=== PATIENT | female | born 1985 | race Caucasian/White ===

== ENCOUNTER 2017-04-04 11:44 | Emergency (ER) | payer OTHER ==
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
--- NOTE | 2017-04-04 13:14 | ED ORDER SUMMARY ---
..... Patient: VAL PADRON OrderSheet [facility] VisitID: [id number] [address] [place] [address] 31y, F Registration Date/Time: 04/04/2017 ORDER SHEET Weight: 43.9 kg (stated) Allergies: Penicillin, Valium, Sulfa Antibiotics, Amoxicillin, Zofran, Vicodin GENERAL ORDERS: CT Cervical Spine wo Cont Urgent (12:15 04/04/2017 HBivens A.R.N.P.) ([facility] 12:44 Vahid) (13:01 Corazon) MEDICATION ORDERS: Toradol IM 60 mg (NOW) (12:37 04/04/2017 HBivens A.R.N.P.) (12:50 Miguelina Lazo.N.) IV FLUIDS: ORDER SHEET NOTES: [Electronically signed by Jessica Gutierrez R.N. (13:25 04/04/2017)] [Electronically signed by Natasah Alston.R.N.P. (15:14 04/04/2017)] [Electronically locked/signed by Jessica Gutierrez R.N. (13:25 04/04/2017)]
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
--- NOTE | 2017-04-04 13:14 | ED ORDER SUMMARY ---
..... Patient: VAL PADRON OrderSheet [facility] VisitID: [id number] [address] [place] [address] 31y, F Registration Date/Time: 04/04/2017 ORDER SHEET Weight: 43.9 kg (stated) Allergies: Penicillin, Valium, Sulfa Antibiotics, Amoxicillin, Zofran, Vicodin GENERAL ORDERS: CT Cervical Spine wo Cont Urgent (12:15 04/04/2017 HBivens A.R.N.P.) ([facility] 12:44 Vahid) (13:01 Corazon) MEDICATION ORDERS: Toradol IM 60 mg (NOW) (12:37 04/04/2017 HBivens A.R.N.P.) (12:50 Miguelina Lazo.N.) IV FLUIDS: ORDER SHEET NOTES: [Electronically signed by Jessica Gutierrez R.N. (13:25 04/04/2017)] [Electronically signed by Natasha Alston.R.N.P. (15:14 04/04/2017)] [Electronically locked/signed by Jessica Gutierrez R.N. (13:25 04/04/2017)]
--- NOTE | 2017-04-04 15:15 | ED MAR SUMMARY ---
..... Medication Administration Record [facility] [address] [place] [address] Patient: VAL PADRON Visit ID: [id number] 31y, F Weight: 43.9 kg Height/Length: 64 in BMI: 16.6 ALLERGIES: Zofran, Amoxicillin, Sulfa Antibiotics, Valium, Penicillin, Vicodin Given 12:50 04/04/2017 Robe Joy R.N. Medication Administered: TORADOL [IM] (KETOROLAC TROMETHAMINE), Dose: 60 mg IM. Medication Ordered: Toradol IM 60 mg (NOW).
--- NOTE | 2017-04-04 15:15 | ED DISCHARGE INSTRUCTIONS ---
Patient: VAL PADRON General Instructions [facility] VisitID: [id number] [address] [place] [address] 31y, F Registration Date/Time: 04/04/2017 Acute cervical strain. INSTRUCTIONS Warnings: GENERAL WARNINGS: Return or contact your physician immediately if your condition worsens or changes unexpectedly, if not improving as expected, or if other problems arise. SPECIFICALLY, return if you develop incontinence of urine (loss of bladder control). Prescription Medications: Naproxen 500 mg tablets: take 1 orally every 12 hours as needed for pain. Dispense twenty (20). No refills. Flexeril 10 mg: Take 1 orally every 8 hours as needed for muscle spasm. Dispense twenty (20). No refills. Substitution is permissible. Follow-up: Follow up with your doctor in about one week even if well. Call for an appointment. Summary of care provided to patient. Understanding of the discharge instructions verbalized by patient. ADDITIONAL INFORMATION Neck Sprain Or Strain A sudden force that causes turning or bending of the neck (such as in a car accident) can stretch or tear muscles (strain) and ligaments (sprain) and cause neck pain. Sometimes neck pain occurs after a simple awkward movement. In either case, muscle spasm is commonly present and contributes to the pain. Unless you had a forceful physical injury (for example, a car accident or fall), X-rays are usually not ordered for the initial evaluation of neck pain. If pain continues and dose not respond to medical treatment, X-rays and other tests may be performed at a later time. Home care The following guidelines will help you care for your injury at home: You may feel more soreness and spasm the first few days after the injury. Reduce your activity level until symptoms begin to improve. When lying down, use a comfortable pillow that supports the head and keeps the spine in a neutral position. The position of the head should not be tilted forward or backward. Use ice packs (ice in a plastic bag, wrapped in a towel) to treat acute pain. Apply for 20 minutes every 24 hours during the first two days. Then, begin local heat (hot shower, hot bath or heating pad) andmassageto reduce muscle spasm. Some patients feel best alternating hot and cold treatments, or just staying with one method only. Do what feels the best to you and gives the most relief. You may use acetaminophen or ibuprofen to control pain, unless another pain medicine was prescribed.If you have chronic liver or kidney disease or ever had a stomach ulcer or GI bleeding, talk with your doctor before using these medicines. Follow-up care Follow up with your physician or this facility if your symptoms do not show signs of improvement. Physical therapy may be needed. If you had X-rays today, they didnt show any broken bones, breaks, or fractures. Sometimes fractures dont show up on the first X-ray. Bruises and sprains can sometimes hurt as much as a fracture. These injuries can take time to heal completely. If your symptoms dont improve or they get worse, talk with your doctor. You may need a repeat X-ray. When to seek medical care Get prompt medical attention if any of the following occur: Pain becomes worse or spreads into your arms Weakness or numbness in one or both arms Neck Pain [No Trauma] There are several possible causes of neck pain without injury: You can get a minor ligament sprain or muscle strain from a sudden minor neck movement. Sleeping with your neck in an awkward position can also cause this. Some persons respond to emotional stress by tensing the muscles of their neck, shoulders and upper back. Chronic spasm in these muscles can cause neck pain and sometimes headaches. Gradualwear and tearof the joints in the spine can cause degenerative arthritis.This can be a source of occasional or chronic neck pain. With aging or repeated small injuries to the neck, the spinal disks (the cushions between each spinal bone) may bulge and put pressure on a nearby spinal nerve. This causes tingling, pain or numbness spreading from the neck to the shoulder, arm or hand on one side. Acute neck pain usually gets better in one to two weeks. Neck pain related to disk disease, arthritis in the spinal joints or spinal stenosis (narrowing of the spinal canal) can become chronic and last for months or years. Unless you had a forceful physical injury (for example, a car accident or fall), X-rays are usually not ordered for the initial evaluation of neck pain. If pain continues and does not respond to medical treatment, x-rays and other tests may be performed at a later time. Home Care: Rest and relax the muscles. Use a comfortable pillow that supports the head and keeps the spine in a neutral position. The position of the head should not be tilted forward or backward. A rolled up towel may help for a custom fit. Some persons find relief with heat (hot shower, hot bath or heating pad) and massage, while others prefer cold packs (crushed or cubed ice in a plastic bag, wrapped in a towel) . Try both and use the method that feels best for 20 minutes several times a day. You may use acetaminophen (Tylenol) or ibuprofen (Motrin, Advil) to control pain, unless another medicine was prescribed. [ NOTE : If you have chronic liver or kidney disease or ever had a stomach ulcer or GI bleeding, talk with your doctor before using these medicines.] Follow Up with your physician or this facility if your symptoms do not show signs of improvement after one week. Physical therapy or further tests may be needed. [NOTE: A radiologist will review any X-rays or CT scans that were taken. We will notify you of any new findings that may affect your care.] Get Prompt Medical Attention if any of the following occur: Pain becomes worse or spreads into one or both arms Weakness or numbness in one or both arms Increasing headache Neck swelling, difficulty or painful swallowing Fever of 100.4F (38C) or higher, or as directed by your healthcare provider Naproxen Sodium Oral tablet What is this medicine? NAPROXEN (na PROX en) is a non-steroidal anti-inflammatory drug (NSAID). It is used to reduce swelling and to treat pain. This medicine may be used for dental pain, headache, or painful monthly periods. It is also used for painful joint and muscular problems such as arthritis, tendinitis, bursitis, and gout. How should I use this medicine? Take this medicine by mouth with a glass of water. Follow the directions on the prescription label. Take it with food if your stomach gets upset. Try to not lie down for at least 10 minutes after you take it. Take your medicine at regular intervals. Do not take your medicine more often than directed. Long-term, continuous use may increase the risk of heart attack or stroke. A special MedGuide will be given to you by the pharmacist with each prescription and refill. Be sure to read this information carefully each time. Talk to your bank operations officer regarding the use of this medicine in children. Special care may be needed. What side effects may I notice from receiving this medicine? Side effects that you should report to your doctor or health spiritual care coordinator as soon as possible: black or bloody stools, blood in the urine or vomit blurred vision chest pain difficulty breathing or wheezing nausea or vomiting severe stomach pain skin rash, skin redness, blistering or peeling skin, hives, or itching slurred speech or weakness on one side of the body swelling of eyelids, throat, lips unexplained weight gain or swelling unusually weak or tired yellowing of eyes or skin Side effects that usually do not require medical attention (report to your doctor or health spiritual care coordinator if they continue or are bothersome): constipation headache heartburn What may interact with this medicine? alcohol aspirin cidofovir diuretics lithium methotrexate other drugs for inflammation like ketorolac or prednisone pemetrexed probenecid warfarin What if I miss a dose? If you miss a dose, take it as soon as you can. If it is almost time for your next dose, take only that dose. Do not take double or extra doses. Where should I keep my medicine? Keep out of the reach of children. Store at room temperature between 15 and 30 degrees C (59 and 86 degrees F). Keep container tightly closed. Throw away any unused medicine after the expiration date. What should I tell my health care provider before I take this medicine? They need to know if you have any of these conditions: asthma cigarette smoker drink more than 3 alcohol containing drinks a day heart disease or circulation problems such as heart failure or leg edema (fluid retention) high blood pressure kidney disease liver disease stomach bleeding or ulcers an unusual or allergic reaction to naproxen, aspirin, other NSAIDs, other medicines, foods, dyes, or preservatives or trying to get breast-feeding What should I watch for while using this medicine? Tell your doctor or health spiritual care coordinator if your pain does not get better. Talk to your doctor before taking another medicine for pain. Do not treat yourself. This medicine does not prevent heart attack or stroke. In fact, this medicine may increase the chance of a heart attack or stroke. The chance may increase with longer use of this medicine and in people who have heart disease. If you take aspirin to prevent heart attack or stroke, talk with your doctor or health spiritual care coordinator. Do not take other medicines that contain aspirin, ibuprofen, or naproxen with this medicine. Side effects such as stomach upset, nausea, or ulcers may be more likely to occur. Many medicines available without a prescription should not be taken with this medicine. This medicine can cause ulcers and bleeding in the stomach and intestines at any time during treatment. Do not smoke cigarettes or drink alcohol. These increase irritation to your stomach and can make it more susceptible to damage from this medicine. Ulcers and bleeding can happen without warning symptoms and can cause . You may get drowsy or dizzy. Do not drive, use machinery, or do anything that needs mental alertness until you know how this medicine affects you. Do not stand or sit up quickly, especially if you are an older patient. This reduces the risk of dizzy or fainting spells. This medicine can cause you to bleed more easily. Try to avoid damage to your teeth and gums when you brush or floss your teeth. Cyclobenzaprine Hydrochloride Oral tablet What is this medicine? CYCLOBENZAPRINE (sye kloe DANIELA naveen preen) is a muscle relaxer. It is used to treat muscle pain, spasms, and stiffness. How should I use this medicine? Take this medicine by mouth with a glass of water. Follow the directions on the prescription label. If this medicine upsets your stomach, take it with food or milk. Take your medicine at regular intervals. Do not take it more often than directed. Talk to your bank operations officer regarding the use of this medicine in children. Special care may be needed. What side effects may I notice from receiving this medicine? Side effects that you should report to your doctor or health spiritual care coordinator as soon as possible: allergic reactions like skin rash, itching or hives, swelling of the face, lips, or tongue chest pain fast heartbeat hallucinations seizures vomiting Side effects that usually do not require medical attention (report to your doctor or health spiritual care coordinator if they continue or are bothersome): headache What may interact with this medicine? Do not take this medicine with any of the following medications: cisapride droperidol flecainide grepafloxacin halofantrine levomethadyl MAOIs like Carbex, Eldepryl, Marplan, Nardil, and Parnate nilotinib pimozide probucol sertindole This medicine may also interact with the following medications: abarelix alcohol contrast dyes dolasetron guanethidine medicines for cancer medicines for depression, anxiety, or psychotic disturbances medicines to treat an irregular heartbeat medicines used for sleep or numbness during surgery or procedure methadone octreotide ondansetron palonosetron phenothiazines like chlorpromazine, mesoridazine, prochlorperazine, thioridazine some medicines for infection like alfuzosin, chloroquine, clarithromycin, levofloxacin, mefloquine, pentamidine, troleandomycin tramadol vardenafil What if I miss a dose? If you miss a dose, take it as soon as you can. If it is almost time for your next dose, take only that dose. Do not take double or extra doses. Where should I keep my medicine? Keep out of the reach of children. Store at room temperature between 15 and 30 degrees C (59 and 86 degrees F). Keep container tightly closed. Throw away any unused medicine after the expiration date. What should I tell my health care provider before I take this medicine? They need to know if you have any of these conditions: heart disease, irregular heartbeat, or previous heart attack liver disease thyroid problem an unusual or allergic reaction to cyclobenzaprine, tricyclic antidepressants, lactose, other medicines, foods, dyes, or preservatives or trying to get breast-feeding What should I watch for while using this medicine? Check with your doctor or health spiritual care coordinator if your condition does not improve within 1 to 3 weeks. You may get drowsy or dizzy when you first start taking the medicine or change doses. Do not drive, use machinery, or do anything that may be dangerous until you know how the medicine affects you. Stand or sit up slowly. Your mouth may get dry. Drinking water, chewing sugarless gum, or sucking on hard candy may help. You have been given the following additional information: Neck Sprain/Strain Neck Pain, No Trauma Naproxen Sodium Oral tablet Cyclobenzaprine Hydrochloride Oral tablet (Electronically signed by Natasha Alstno A.R.N.P. 04/04/2017 15:14)
--- NOTE | 2017-04-04 15:15 | ED MED RECONCILIATION SUMMARY ---
Patient: VAL PADRON Medication Reconciliation Report [facility] VisitID: [id number] [address] [place] [address] 31y, F Registration Date/Time: 04/04/2017 Weight: 43.9 kg Height/Length: 64 in. BMI: 16.6 ALLERGIES: Amoxicillin, Penicillin, Sulfa Antibiotics, Valium, Vicodin, Zofran The patient's Home Medications are listed below: THE FOLLOWING MEDICATIONS NEED TO BE RECONCILED: OTC enzymes The source(s) of the original Home Medication information: Not obtained. The following Medications were given to the patient in the Emergency Department: Toradol [IM] IM 60 mg, administered: 04/04/2017 12:50:00 PM The following Medications were prescribed to the patient: Naproxen 500 mg tablets: take 1 orally every 12 hours as needed for pain. Dispense twenty (20). No refills. -- Natasha Alston A.R.NKendallP. Flexeril 10 mg: Take 1 orally every 8 hours as needed for muscle spasm. Dispense twenty (20). No refills. Substitution is permissible. -- Natasha Alston A.R.N.P.
--- NOTE | 2017-04-04 15:15 | ED MAR SUMMARY ---
..... Medication Administration Record [facility] [address] [place] [address] Patient: VAL PADRON Visit ID: [id number] 31y, F Weight: 43.9 kg Height/Length: 64 in BMI: 16.6 ALLERGIES: Zofran, Amoxicillin, Sulfa Antibiotics, Valium, Penicillin, Vicodin Given 12:50 04/04/2017 Robe Joy R.N. Medication Administered: TORADOL [IM] (KETOROLAC TROMETHAMINE), Dose: 60 mg IM. Medication Ordered: Toradol IM 60 mg (NOW).
--- NOTE | 2017-04-04 15:15 | ED MED RECONCILIATION SUMMARY ---
Patient: VAL PADRON Medication Reconciliation Report [facility] VisitID: [id number] [address] [place] [address] 31y, F Registration Date/Time: 04/04/2017 Weight: 43.9 kg Height/Length: 64 in. BMI: 16.6 ALLERGIES: Amoxicillin, Penicillin, Sulfa Antibiotics, Valium, Vicodin, Zofran The patient's Home Medications are listed below: THE FOLLOWING MEDICATIONS NEED TO BE RECONCILED: OTC enzymes The source(s) of the original Home Medication information: Not obtained. The following Medications were given to the patient in the Emergency Department: Toradol [IM] IM 60 mg, administered: 04/04/2017 12:50:00 PM The following Medications were prescribed to the patient: Naproxen 500 mg tablets: take 1 orally every 12 hours as needed for pain. Dispense twenty (20). No refills. -- Natasha Alston A.R.NKendallP. Flexeril 10 mg: Take 1 orally every 8 hours as needed for muscle spasm. Dispense twenty (20). No refills. Substitution is permissible. -- Natasha Alston A.R.N.P.
== END 2017-04-04 13:25 | disposition home or self-care (01) ==
LOC: ED SRH 11:44
DX: S16.1XXA Strain of muscle, fascia and tendon at neck level, initial encounter (principal); Z88.5 Allergy status to narcotic agent; Y04.0XXA Assault by unarmed brawl or fight, initial encounter; Y93.89 Activity, other specified; Y92.9 Unspecified place or not applicable; Y99.8 Other external cause status; Z79.899 Other long term (current) drug therapy; F17.210 Nicotine dependence, cigarettes, uncomplicated; Z88.0 Allergy status to penicillin; Z88.1 Allergy status to other antibiotic agents